=== PATIENT | female | born 1960 | race Caucasian/White ===

== ENCOUNTER → 2018-07-29 | Outpatient (CLI) | payer MEDICAID ==
[~2018-07-29] MED LIST: ABILIFY; ABILIFY5 MG PO; ALEVE220 MG PO; ALLEGRA180 MG PO; ASPIRIN E.C. 8181 MG PO; CALCIUM + D 5001 TAB PO; CYMBALTA; DEPO-PROVER150 MG/M1 IM; EYE GTTS; KLONOPIN PO; MONONESSA 35 MC1 TA1 PO; MULTIVITAMIN1 SGL PO; NASONEX SPRAY; PERCOCET 325 MG1 TA2 PO; ROZEREM8 MG PO; SINGULAIR10 MG PO; VERAMYST27.5 MCG/A NS; ZADITOR 5 ML5 ML OP
== END ==
LOC: MC.RAD 07:53
DX: Z12.31 Encounter for screening mammogram for malignant neoplasm of breast (principal)

== ENCOUNTER → 2018-11-06 | Outpatient (CLI) | payer MEDICAID ==
[~2018-11-06] VITALS: Ht 172.8 cm; Wt 101.8 kg
[~2018-11-06] MED LIST changes: +ABILIFY 15MG TA15 MG PO; -ABILIFY5 MG PO; -CALCIUM + D 5001 TAB PO; +CALCIUM 600MG+D1 TAB PO; +CENTRUM SILVER1 CTB PO; -CYMBALTA; +CYMBALTA 60MG60 MG PO; +KLONOPIN 0.5MG0.5 MG PO; -KLONOPIN PO; -MULTIVITAMIN1 SGL PO; +NATURE'S BLE1000 MCG PO; +PROVIGIL200 MG PO; +WELLBUTRIN XL300 M1 PO
[2018-11-06 09:42] VITALS: BP 116/70; PULSE 76
== END ==
LOC: LIGHT 09:20
DX: G47.33 Obstructive sleep apnea (adult) (pediatric) (principal); F32.9 Major depressive disorder, single episode, unspecified; M16.9 Osteoarthritis of hip, unspecified; E66.9 Obesity, unspecified; Z68.35 Body mass index [BMI] 35.0-35.9, adult; Z71.3 Dietary counseling and surveillance

== ENCOUNTER → 2018-11-11 | Outpatient (CLI) | payer MEDICAID | LOC: LIGHT 09:49 | DX: G47.33 Obstructive sleep apnea (adult) (pediatric) (principal); F32.9 Major depressive disorder, single episode, unspecified; M15.9 Polyosteoarthritis, unspecified; E66.9 Obesity, unspecified; Z68.35 Body mass index [BMI] 35.0-35.9, adult; Z71.3 Dietary counseling and surveillance ==

== ENCOUNTER → 2018-11-12 | Outpatient (CLI) | payer MEDICAID | LOC: LIGHT 14:36 | DX: G47.33 Obstructive sleep apnea (adult) (pediatric) (principal); F32.9 Major depressive disorder, single episode, unspecified; M15.9 Polyosteoarthritis, unspecified; E66.9 Obesity, unspecified; Z68.35 Body mass index [BMI] 35.0-35.9, adult; Z71.3 Dietary counseling and surveillance ==

== ENCOUNTER → 2018-12-05 | Outpatient (CLI) | payer MEDICAID ==
[~2018-12-05] VITALS: Ht 20.4 cm; Wt 100.7 kg
[2018-12-05 14:52] VITALS: BP 130/74; PULSE 72
== END ==
LOC: LIGHT 14:29
DX: G47.33 Obstructive sleep apnea (adult) (pediatric) (principal); F32.9 Major depressive disorder, single episode, unspecified; M15.9 Polyosteoarthritis, unspecified; E66.9 Obesity, unspecified; Z68.33 Body mass index [BMI] 33.0-33.9, adult; Z71.3 Dietary counseling and surveillance
CPT/HCPCS: G0463

== ENCOUNTER → 2019-01-02 | Outpatient (CLI) | payer MEDICAID ==
[~2019-01-02] VITALS: Ht 172.7 cm; Wt 101.2 kg
[2019-01-02 14:49] VITALS: BP 126/84; PULSE 80
== END ==
LOC: LIGHT 14:00
DX: G47.33 Obstructive sleep apnea (adult) (pediatric) (principal); F32.9 Major depressive disorder, single episode, unspecified; M15.9 Polyosteoarthritis, unspecified; E66.9 Obesity, unspecified; Z68.33 Body mass index [BMI] 33.0-33.9, adult; Z71.3 Dietary counseling and surveillance
CPT/HCPCS: G0463

== ENCOUNTER → 2019-01-30 | Outpatient (CLI) | payer MEDICAID ==
[~2019-01-30] VITALS: Ht 172.7 cm; Wt 100.7 kg
[~2019-01-30] MED LIST changes: +ADIPEX-P37.5 MG PO
[2019-01-30 11:54] VITALS: BP 144/84; PULSE 86
== END ==
LOC: LIGHT 11:25
DX: G47.33 Obstructive sleep apnea (adult) (pediatric) (principal); F32.9 Major depressive disorder, single episode, unspecified
CPT/HCPCS: G0463

== ENCOUNTER → 2019-03-06 | Outpatient (CLI) | payer MEDICAID ==
[~2019-03-06] VITALS: Ht 172.7 cm; Wt 98.9 kg
[2019-03-06 11:22] VITALS: BP 128/74; PULSE 72
== END ==
LOC: LIGHT 11:02
DX: G47.33 Obstructive sleep apnea (adult) (pediatric) (principal); F32.9 Major depressive disorder, single episode, unspecified; M15.9 Polyosteoarthritis, unspecified; E66.9 Obesity, unspecified; Z68.33 Body mass index [BMI] 33.0-33.9, adult; Z71.3 Dietary counseling and surveillance
CPT/HCPCS: G0463

== ENCOUNTER → 2019-04-10 | Outpatient (CLI) | payer MEDICAID ==
[~2019-04-10] VITALS: Ht 172.7 cm; Wt 96.6 kg
[2019-04-10 11:45] VITALS: BP 136/90; PULSE 80
== END ==
LOC: LIGHT 11:28
DX: Z76.89 Persons encountering health services in other specified circumstances (principal)
CPT/HCPCS: G0463

== ENCOUNTER → 2019-05-22 | Outpatient (CLI) | payer MEDICAID ==
[~2019-05-22] VITALS: Ht 172.7 cm; Wt 94.1 kg
[~2019-05-22] MED LIST changes: +ALLEGRA 180MG180 MG PO; +ASTELIN NASAL S34 ML NS; +FLONASE NASAL S16 GM NS; +SINGULAIR 110 MG/TAB PO; +VOLTAREN GEL 1%1 TU TP; +[UNRECOGNIZED DRUG - OTHER] OU
[2019-05-22 10:40] VITALS: BP 116/80; PULSE 88
== END ==
LOC: LIGHT 10:18
DX: G47.33 Obstructive sleep apnea (adult) (pediatric) (principal); F32.9 Major depressive disorder, single episode, unspecified; M15.9 Polyosteoarthritis, unspecified; E66.9 Obesity, unspecified; Z68.31 Body mass index [BMI] 31.0-31.9, adult; Z71.3 Dietary counseling and surveillance
CPT/HCPCS: G0463

== ENCOUNTER → 2019-06-26 | Outpatient (CLI) | payer MEDICAID ==
[~2019-06-26] VITALS: Ht 172.7 cm; Wt 93.2 kg
[2019-06-26 10:14] VITALS: BP 114/80; PULSE 84
== END ==
LOC: LIGHT 10:07
DX: G47.33 Obstructive sleep apnea (adult) (pediatric) (principal); F32.9 Major depressive disorder, single episode, unspecified; M15.9 Polyosteoarthritis, unspecified; E66.9 Obesity, unspecified; Z68.31 Body mass index [BMI] 31.0-31.9, adult; Z71.3 Dietary counseling and surveillance
CPT/HCPCS: G0463

== ENCOUNTER → 2019-07-24 | Outpatient (CLI) | payer MEDICAID ==
[~2019-07-24] VITALS: Ht 172.7 cm; Wt 93.2 kg
[2019-07-24 13:06] VITALS: BP 150/80; PULSE 82
== END ==
LOC: LIGHT 12:25
DX: G47.33 Obstructive sleep apnea (adult) (pediatric) (principal); F32.9 Major depressive disorder, single episode, unspecified; M15.9 Polyosteoarthritis, unspecified; E66.9 Obesity, unspecified; Z68.31 Body mass index [BMI] 31.0-31.9, adult; Z71.3 Dietary counseling and surveillance
CPT/HCPCS: G0463

== ENCOUNTER → 2019-08-12 | Outpatient (CLI) | payer MEDICAID | LOC: MC.RAD 07:30 | DX: Z12.31 Encounter for screening mammogram for malignant neoplasm of breast (principal) ==

== ENCOUNTER → 2019-09-04 | Outpatient (CLI) | payer MEDICAID ==
[~2019-09-04] VITALS: Ht 172.7 cm; Wt 94.3 kg
[2019-09-04 13:27] VITALS: BP 128/76; PULSE 80
== END ==
LOC: LIGHT 13:04
DX: G47.33 Obstructive sleep apnea (adult) (pediatric) (principal); F32.9 Major depressive disorder, single episode, unspecified; M15.9 Polyosteoarthritis, unspecified; E66.9 Obesity, unspecified; Z68.31 Body mass index [BMI] 31.0-31.9, adult; Z71.3 Dietary counseling and surveillance
CPT/HCPCS: G0463

== ENCOUNTER → 2019-10-30 | Outpatient (CLI) | payer MEDICAID ==
[~2019-10-30] MED LIST changes: +SAXENDA6 MG/ML SQ
== END ==
LOC: ZLAB.ENT 17:29
DX: J32.4 Chronic pansinusitis (principal)

== ENCOUNTER → 2019-10-30 | Outpatient (CLI) | payer MEDICAID | LOC: ZCOL.LAB 18:30 | DX: J32.4 Chronic pansinusitis (principal) ==

== ENCOUNTER → 2019-11-20 | Outpatient (CLI) | payer MEDICAID ==
[~2019-11-20] VITALS: Ht 172.7 cm; Wt 88.7 kg
[~2019-11-20] MED LIST changes: +WELLBUTRIN XL150 MG PO; -WELLBUTRIN XL300 M1 PO
[2019-11-20 11:30] VITALS: BP 130/72; PULSE 88
== END ==
LOC: LIGHT 11:21
DX: Z68.29 Body mass index [BMI] 29.0-29.9, adult (principal); F32.9 Major depressive disorder, single episode, unspecified
CPT/HCPCS: G0463

== ENCOUNTER → 2019-12-11 | Outpatient (CLI) | payer MEDICAID ==
[~2019-12-11] VITALS: Ht 172.7 cm; Wt 85.0 kg
[2019-12-11 15:57] VITALS: BP 126/70; PULSE 76
[2019-12-29 16:17] VITALS: PULSE 92.9
== END ==
LOC: LIGHT 14:09
DX: Z68.29 Body mass index [BMI] 29.0-29.9, adult (principal); G47.30 Sleep apnea, unspecified
CPT/HCPCS: G0463

== ENCOUNTER → 2020-07-29 | Outpatient (CLI) | payer MEDICAID ==
[~2020-07-29] VITALS: Ht 172.7 cm; Wt 81.9 kg
[~2020-07-29] MED LIST changes: +KLONOPIN WAFERS2 MG PO; +NUVIGIL250 MG PO; -PROVIGIL200 MG PO; +VIIBRYD20 MG PO; +VITAMIN B-6100 MG PO; +VITAMIN D31000 I1 PO
[2020-07-29 14:26] VITALS: BP 130/80; PULSE 80
== END ==
LOC: LIGHT 14:30
DX: E66.8 Other obesity (principal); Z68.27 Body mass index [BMI] 27.0-27.9, adult; G47.30 Sleep apnea, unspecified
CPT/HCPCS: G0463

== ENCOUNTER 2020-08-13 09:25 | Day surgery (SDC) | payer MEDICAID ==
[~2020-08-13] VITALS: Ht 172.7 cm; Wt 81.4 kg
[~2020-08-13 09:25] MED LIST changes: -KLONOPIN WAFERS2 MG PO; -VITAMIN B-6100 MG PO; -VITAMIN D31000 I1 PO
[2020-08-13 09:47] VITALS: BP 123/77; PULSE 88; TEMP 98.7
[2020-08-13] MEDS ORDERED: KLONOPIN WAFERS2 MG PO (09:58)
[2020-08-13] MEDS ORDERED: ABILIFY 15MG TA15 MG PO (10:01)
[2020-08-13] MEDS ORDERED: VITAMIN D31000 I1 PO (10:01)
[2020-08-13] MEDS ORDERED: VITAMIN B-6100 MG PO (10:02)
[2020-08-13 10:55] VITALS: BP 118/62; PULSE 87
--- NOTE | 2020-08-13 10:55 | NUR ---
Patient brought back to [facility] [place] [address] via cart. Ambulated to chair without difficulty. Placed on monitors, vital signs stable. IV infusing without difficulty. Warm blanket provided. Patients friend will drive home later. Report recieved from Sherie LACEY. Requesting juice and muffin. Call najera within reach, will continue to monitor.
[2020-08-13 11:10] VITALS: BP 106/75; PULSE 86
--- NOTE | 2020-08-13 11:10 | NUR ---
Patient tolerating food and drink without difficulty. Requesting more snacks. Vital signs stable. Will continue to monitor.
[2020-08-13 11:25] VITALS: BP 104/69; PULSE 75
--- NOTE | 2020-08-13 11:25 | NUR ---
MD at bedside to review results with patient.
--- NOTE | 2020-08-13 11:35 | NUR ---
Patient states she feels ready to go home. Denies pain or nausea. Discharge instructions reviewed, all questions answered. IV removed from right hand, intact. Patient to get dressed at this time.
--- NOTE | 2020-08-13 12:00 | NUR ---
Guera LACEY brought patient down to lobby via wheel chair. Friend at front to sweet pickled fruit maker and drive patient home. All belongings in hand.
== END 2020-08-13 12:00 | disposition home or self-care (01) ==
LOC: SDCO 09:25
DX: Z12.11 Encounter for screening for malignant neoplasm of colon (principal); D12.0 Benign neoplasm of cecum; F32.9 Major depressive disorder, single episode, unspecified; F41.9 Anxiety disorder, unspecified; J45.909 Unspecified asthma, uncomplicated; G47.33 Obstructive sleep apnea (adult) (pediatric); G40.909 Epilepsy, unspecified, not intractable, without status epilepticus; M79.7 Fibromyalgia; Z20.828 Contact with and (suspected) exposure to other viral communicable diseases; Z88.3 Allergy status to other anti-infective agents; Z88.0 Allergy status to penicillin; Z91.040 Latex allergy status; Z88.2 Allergy status to sulfonamides; Z88.5 Allergy status to narcotic agent
CPT/HCPCS: J2704; J3010; J7030

== ENCOUNTER → 2020-08-16 | Outpatient (CLI) | payer MEDICAID ==
[~2020-08-16] MED LIST changes: +KLONOPIN WAFERS2 MG PO; +VITAMIN B-6100 MG PO; +VITAMIN D31000 I1 PO
== END ==
LOC: MC.RAD 08-13 07:30
DX: Z12.31 Encounter for screening mammogram for malignant neoplasm of breast (principal)

== ENCOUNTER → 2020-08-22 | Outpatient (CLI) | payer MEDICAID | LOC: COL.LAB 17:51 | DX: Z01.89 Encounter for other specified special examinations (principal) ==

== ENCOUNTER → 2021-08-18 | Outpatient (CLI) | payer MEDICAID | LOC: MC.RAD 13:00 | DX: Z12.31 Encounter for screening mammogram for malignant neoplasm of breast (principal); N63.10 Unspecified lump in the right breast, unspecified quadrant ==

== ENCOUNTER → 2021-08-22 | Outpatient (CLI) | payer MEDICAID | LOC: MC.RAD 11:00 | DX: N63.10 Unspecified lump in the right breast, unspecified quadrant (principal) ==

== ENCOUNTER 2022-03-17 11:15 | Outpatient (RCR) | payer MEDICAID | END 2022-03-21 | disposition still patient (30) | LOC: WSPT | DX: M17.0 Bilateral primary osteoarthritis of knee (principal) ==

== ENCOUNTER → 2022-04-20 | Outpatient (RCR) | payer MEDICAID | END | disposition still patient (30) | LOC: WSPT → WSC 03-27 08:15 → WSPT 04-03 09:45 → WSC 04-06 10:30 → WSPT 04-11 09:00 | DX: M17.0 Bilateral primary osteoarthritis of knee (principal) ==

== ENCOUNTER 2022-04-25 09:43 | Outpatient (RCR) | payer MEDICAID | END 2022-04-25 14:05 | disposition home or self-care (01) | LOC: WSPT 09:43 | DX: M17.0 Bilateral primary osteoarthritis of knee (principal) ==

== ENCOUNTER 2022-08-16 08:56 | Outpatient (RCR) | payer MEDICAID | END 2022-08-21 | disposition home or self-care (01) | LOC: WSPT | DX: M25.562 Pain in left knee (principal); M25.561 Pain in right knee ==

== ENCOUNTER 2023-03-23 17:02 | Emergency (ER) | payer MEDICAID ==
[~2023-03-23] VITALS: Ht 167.6 cm; Wt 72.7 kg
[2023-03-23 17:22] VITALS: TEMP 98.1
[2023-03-23 17:54] LABS: BASO % 0.5 % (0.0-2.0); EOS # 0.2 K/mm3 (0.0-0.7); EOS % 2.8 % (0.0-4.0); GRAN # 2.8 K/mm3 (1.4-6.5); HEMOGLOBIN 13.4 g/dl (12.5-16.0); LYMPH # 2.3 K/mm3 (1.2-3.4); LYMPH % 40.5 % (20.0-51.0); MEAN CELL VOLUME 91 fl (80.0-100.0); MEAN CORPUSCULAR HEMOGLOBIN 31 pg (27-31); MEAN CORPUSCULAR HGB CONC 34 g/dl (33.0-37.0); MEAN PLATELET VOLUME 10.2 fl (7.4-10.4); MONO # 0.4 K/mm3 (0.1-0.6); PLATELET COUNT 228 K/mm3 (130-400); REDCELL DISTRIBUTION WIDTH-CV 12.7 % (11.5-14.5)
[2023-03-23 18:01] LABS: COLLECTION METHOD CLEAN CATCH; PROTHROMBIN TIME 11.6 SECONDS (9.7-12.8)
[2023-03-23 18:12] LABS: ALBUMIN 4.6 gm/dL (3.4-4.8); BILIRUBIN,TOTAL 0.4 mg/dL (0.2-1.2); CALCIUM 9.5 mg/dL (8.4-10.2); CREATININE, serum 0.77 mg/dL (0.57-1.11); POTASSIUM 3.7 mmol/L (3.5-4.5); TOTAL PROTEIN 7.3 gm/dL (6.2-8.1)
[2023-03-23 18:20] LABS: SQUAMOUS EPITHELIAL None Seen /hpf (0-10); URINE BACTERIA None Seen /hpf (NONE SEEN); URINE RBC 0-2 /hpf (0-2)
[2023-03-23 18:25] LABS: PH 5.5 (5.0-8.5); URINE APPEARANCE Clear (CLEAR/HAZY); URINE BLOOD 2+ (NEGATIVE); URINE COLOR Yellow (YELLOW); URINE GLUCOSE Negative (NEGATIVE); URINE KETONE Negative (NEGATIVE); URINE NITRATE Negative (NEGATIVE); URINE PROTEIN(semi-quant) Negative (NEGATIVE); URINE UROBILINOGEN 0.2 E.U/dL (0.2-1.0)
[2023-03-23 20:10] VITALS: BP 124/61; PULSE 80
== END 2023-03-23 20:15 | disposition home or self-care (01) ==
LOC: COL.ER 17:02
PROVIDERS: Physician Assistant
DX: N95.0 Postmenopausal bleeding (principal); Z91.040 Latex allergy status
CPT/HCPCS: Q9967